=== PATIENT | male | born 1970 | race Caucasian/White ===

== ENCOUNTER 2024-05-13 17:07 | Emergency (ER) | payer OTHER ==
[~2024-05-13] VITALS: Ht 177.8 cm; Wt 101.8 kg
[~2024-05-13 17:07] MED LIST: CYCL5TAB11 PO
[2024-05-13 20:13] VITALS: BP 177/106; PULSE 77; RESP 17; TEMP 97.8; O2SAT 97
== END 2024-05-13 20:19 | disposition home or self-care (01) ==
LOC: ER 17:07
DX: S76.311A Strain of muscle, fascia and tendon of the posterior muscle group at thigh level, right thigh, initial encounter (principal); Z79.899 Other long term (current) drug therapy; X58.XXXA Exposure to other specified factors, initial encounter; Y93.89 Activity, other specified; Y92.89 Other specified places as the place of occurrence of the external cause; Y99.8 Other external cause status
CPT/HCPCS: 99284